=== PATIENT | male | born 1965 | race Two or more races ===

== ENCOUNTER 2024-05-17 17:11 | Emergency (ER) | payer MEDICAID, SELFPAY ==
[2024-05-17 17:12] VITALS: BMI 30.4
[2024-05-17 17:18] VITALS: BP 181/102; BP 182/97; PULSE 68; RESP 18; TEMP 36.7; O2SAT 96
--- NOTE | 2024-05-17 18:10 | PC.NURSE ---
pt walked out of RME Rm 1. Not wanting to be seen by a provider anymore. nurse notified
== END 2024-05-17 18:01 | disposition left against medical advice (07) ==
LOC: SERX 18:30
PROVIDERS: Emergency Provider Emergency Medicine
DX: Z53.21 Procedure and treatment not carried out due to patient leaving prior to being seen by health care provider (principal)
CPT/HCPCS: 99281

== ENCOUNTER 2024-05-23 01:23 | Inpatient (IN) | payer MEDICAID, SELFPAY ==
[2024-05-23] VITALS (10 sets, daily range): BP systolic 139–179; BP diastolic 77–112; PULSE 60–87; RESP 12–98; TEMP 36.2–37.4; O2SAT 96–100; BMI 29.5
--- NOTE | 2024-05-23 01:26 | EKG_ITS ---
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
[2024-05-23] MEDS: DIAZEPAM 5 MG TABLET 10 MG PO (02:25)
[2024-05-23 02:31] LABS: Basophils % (Auto) 0 % (0-2.5); Eosinophils # (Auto) 0.3 Thou/mm3 (0.0-0.5); Eosinophils % (Auto) 4 % (0-10); Hematocrit 33.2 % (41.0-53.0); Hemoglobin 11.9 g/dL (13.5-16.0); Immature Granulocytes % (Auto) 0 % (0-0); Immature Granulocytes Auto 0.02 Thou/mm3 (0.00-0.00); Lymphocytes # (Auto) 1.9 Thou/mm3 (1.0-4.8); Lymphocytes % (Auto) 27 % (10-50); Mean Corpuscular HGB Conc 35.8 g/dl (31.0-37.0); Mean Corpuscular Hemoglobin 27.7 pg (25.0-35.0); Mean Corpuscular Volume 77 fL (80-100); Monocytes # (Auto) 0.5 Thou/mm3 (0.0-0.8); Monocytes % (Auto) 7 % (0-12); Neutrophils # (Auto) 4.2 Thou/mm3 (1.8-7.7); Neutrophils % (Auto) 61 % (37-80); Nucleated Red Blood Cell % 0 /100 WBC (0); Platelet Count 166 Thou/mm3 (140-440); RDW Standard Deviation 32.8 fL (35.1-43.9); White Blood Count 6.9 Thou/mm3 (3.8-10.6)
[2024-05-23 03:08] LABS: Troponin I < 0.020 ng/mL (0.0-0.045)
[2024-05-23 03:17] LABS: Albumin, Serum 4.4 gm/dL (3.4-4.8); Albumin/Globulin Ratio 1.5 (1.2-2.2); Alkaline Phosphatase 173 U/L (46-116); Anion Gap 8 (7-16); BUN/Creatinine Ratio 18 Ratio (12-20); Bilirubin,Total 0.9 mg/dL (0.3-1.2); Blood Urea Nitrogen 18 mg/dL (9-23); Calcium 8.4 mg/dL (8.3-10.6); Calcium (Corrected) 8.4 mg/dL (8.5-10.1); Carbon Dioxide 24.6 mMol/L (20.0-31.0); Chloride 93 mMol/L (98-107); Globulin 2.9 gm/dL (2.3-3.5); Glucose 122 mg/dL (74-106); Osmolality,Calculated 256 (275-295); Potassium 3.8 mMol/L (3.4-5.1); Sodium 126 mMol/L (136-145); Total Protein 7.3 gm/dL (5.7-8.2); eGFR > 60 See Note
[2024-05-23 03:24] LABS: Alanine Aminotransferase 1707 U/L (10-49)
[2024-05-23 04:05] LABS: Collection Type, Urine Clean Catch
--- NOTE | 2024-05-23 04:07 | XR_ITS ---
Examination: Abdomen sonogram, Limited Date and time of exam: May 23, 2024 0426 hrs. Indications: Excessive alcohol drinking beginning May 15, 2024 with elevated liver function tests on laboratory examination Technique: Real-time go scale transabdominal sonographic images of the upper abdomen obtained. Findings: Normal gallbladder Common bile duct 0.4 cm no stones Pancreas obscured by bowel gas Liver 17.4 cm lobular contour fatty infiltration no solid liver lesions Normal hepatopedal portal venous flow Patent IVC Impression: Normal gallbladder Primary hepatocellular disease versus cirrhosis
[2024-05-23 04:20] LABS: Bacteria,Urine Rare; Bilirubin,Urine Negative (Negative); Blood,Urine Negative (Negative); Clarity,Urine Clear (Clear/Hazy); Color,Urine Lt-Yellow (Lt Yel-Yel); Glucose, Urine Negative (Negative); Ketones,Urine Negative (Negative); Leukocyte Esterase,Urine Negative (Negative); Nitrite,Urine Negative (Negative); Protein,Urine Negative (Neg - Trace); RBC,Urine 1 /hpf (0-3); Specific Gravity,Urine 1.008 (1.001-1.035); Squamous Epithelial Cell,Urine < 1 /hpf (0-5); Urobilinogen,Urine Negative mg/dL (0.0-1.0); WBC,Urine 1 /hpf (0-5)
[2024-05-23 04:25] LABS: Amphetamine/Methamp Scrn,U Negative (Negative); Barbiturate Screen,Urine Negative (Negative); Benzodiazepines Screen,Urine Negative (Negative); Benzoylecgonine Screen, Ur Negative (Negative); Fentanyl Screen,Urine Negative (Negative); Opiate Screen,Urine Negative (Negative); THC Screen,Urine Negative (Negative)
--- NOTE | 2024-05-23 05:18 | PD.EDRME ---
Rapid Medical Screening Exam RME Arrival date/time: 05/23/24 01:23 59M with history of HTN and alcohol use presents to ED with CP and anxiety. Patient has been drinking non-stop for 2 weeks and stopped drinking several hours ago. Patient denies SI/HI. Chief Complaint: Chest Pain Time Seen by Provider: 05/23/24 02:01 Vital signs: Vital Signs Temperature 98.4 F 05/23/24 01:48 Pulse Rate 74 05/23/24 01:48 Respiratory Rate 18 05/23/24 01:48 Blood Pressure 164/105 H 05/23/24 01:48 Pulse Oximetry (%) 100 05/23/24 01:48 Oxygen Delivery Method Room Air 05/23/24 01:48
[2024-05-23 05:31] LABS: Hepatitis A Antibody IgM Non Reactive (Non React); Hepatitis B Core Antibody IgM Non Reactive (Non React); Hepatitis B Surface Antigen Non Reactive (Non React); Hepatitis C Antibody Non Reactive (Non React)
--- NOTE | 2024-05-23 05:39 | PRELIM_ITS ---
Ultrasound liver. May 23, 2024 at 0426 hours Clinical history: Elevated LFTS.Comparison: No prior study is available for comparison. Findings:The liver measures 17.2 cm and demonstrates increased ec hotexture and lobular contour. No gallbladder calculus ,wall thickening or pericholecystic fluid. Com mon bile duct is average caliber measuring 0.4 cm. There is no intrahepatic biliary ductal dilatation . The main portal vein demonstrates hepatopetal flow. The visualized hepatic veins appear patent. The common hepatic duct is normal in caliber. Impression:1. Fatty liver with lobular contour. Recommend clinical and laboratory correlation. 2. No sonographic evidence of cholelithiasis, acute cholecystiti s or biliary obstruction. Report Electronically Signed By: Oliverio Kauffman 05/23/2024 5:38:48 AM [EST]
[2024-05-23 06:30] LABS: Ammonia 10 uMol/L (11-32)
[2024-05-23 07:02] LABS: INR 1.1 (0.9-1.3); Partial Thromboplastin Time 23.8 Seconds (22.0-36.0); Prothrombin Time 11.6 Seconds (9.0-12.2)
[2024-05-23 08:30] LABS: Lipase 64 U/L (12-53)
[2024-05-23 08:31] LABS: Acetaminophen < 2.0 mcg/mL (10.0-20.0)
[2024-05-23 11:47] LABS: HIV (1&2) Antibody Rapid Non-Reactive
[2024-05-23 12:10] LABS: Aspartate Amino Transferase 973 U/L (0-34)
[2024-05-23] MEDS: LORazepam 2 MG/ML VIAL IVP (13:44)
--- NOTE | 2024-05-23 14:49 | ESHP_ITS ---
<Statement entered by Cassidy Patel MD - 05/28/24 14:16> I reviewed above note and agree with findings and plans. I have also personally examined the patient with medicine team and went over assessment and plan with medical team including web design intern and resident physician. Documentation for date of: 05/23/24 HPI History of Present Illness Chief complaint: Alcohol withdrawal, anxiety History of present illness: Mr. Reagan is a 59-year-old male with past medical history of hypertension who presented to [facility] with a chief complaint of anxiety, shakiness and chest pain. Patient that his symptoms started about 8 days ago, he started feeling more anxious, reports drinking 12 pack beer on a daily basis for the last 8 days. Reports last drink was yesterday at 11 PM, he started feeling anxious tremulous, symptoms were relieved with alcohol. Patient reports drinking on and off for the last many years, complains of nausea with vomiting, does report multiple episodes before presenting to the hospital and chest pain, substernal, on and off, nonradiating. Patient denies any blood in vomit, mild tremors noted, complains of anxiety has no other complaints. In the ED patient's alcohol level was found to be 184, denies any other drug use otherwise. Denies any shortness of breath and headache. Patient did report that he had been drinking nonstop for the last 8 days to the ED physician. ED Course: ED Vitals: On presentation's BP 164/105, P74, RR 18, temp 98.4, O2 sat 100 on room air ED Labs: ED labs significant for RBC 4.3, hemoglobin 11.9, hematocrit 33.2, MCV 77, sodium 126, corrected sodium 127, glucose 122, chloride 93, osmolality 256, corrected calcium 8.4, AST 973, ALT 1707, alk phos 173, ammonia 10, lipase 64 UA does show rare bacteria, tox screen shows blood alcohol level 184, hepatitis panel nonreactive ED Imaging:Liver ultrasound shows patent IVC, Normal gallbladder and Primary hepatocellular disease versus cirrhosis ED Treatment:Patient was given diazepam 10 mg x 1 in ED She will be admitted for alcohol withdrawal and transaminitis. Review of Systems Review of Systems Narrative Review of Systems: ROS: -CONSTITUTIONAL: Denies weight loss, fever and chills. -HEENT: Denies changes in vision and hearing. -RESPIRATORY: Denies SOB and cough. -CV: Denies palpitations and Positive for Chest Pain. -GI: Denies abdominal pain,constipation and diarrhea, positive for nausea, vomiting -: Denies dysuria and urinary frequency. -MSK: Denies myalgia and joint pain. -SKIN: Denies rash and pruritus. -NEUROLOGICAL: Denies headache and syncope. -PSYCHIATRIC: Denies recent changes in mood. Positive for anxiety. 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 Obese, conversational and non-toxic appearing. Reports anxiety. HEENT: Normocephalic, atraumatic, mucous membranes moist. Heart: Regular rate and rhythm, no murmurs. Lungs: Clear to auscultation with no wheezing or crackles. Abdomen: Soft, nondistended, nontender, positive bowel sounds. ?No guarding or rebound tenderness. Neurologic: Alert and oriented x3, no gross neurological deficit, and patient able to move all 4 extremities. Mild tremors noted. Extremities: No edema. Skin: No rash or ecchymoses. Results: Labs 05/23/24 02:21 05/23/24 02:21 Labs: Short CBC 05/23/24 Range/Units 02:21 WBC 6.9 (3.8-10.6) Thou/mm3 Hgb 11.9 L (13.5-16.0) g/dL Hct 33.2 L (41.0-53.0) % Plt Count 166 (140-440) Thou/mm3 BMP 05/23/24 02:21 Sodium 126 L Potassium 3.8 Chloride 93 L Carbon Dioxide 24.6 BUN 18 Creatinine 1.0 Glucose 122 H Calcium 8.4 Cardiac Enzymes 05/23/24 Range/Units 02:21 Troponin I < 0.020 (0.0-0.045) ng/mL Liver Function 05/23/24 Range/Units 02:21 Total Bilirubin 0.9 (0.3-1.2) mg/dL AST 973 H* (0-34) U/L ALT 1707 H* (10-49) U/L Alkaline Phosphatase 173 H (46-116) U/L Albumin 4.4 (3.4-4.8) gm/dL Urine 05/23/24 Range/Units 03:56 Urine Color Lt-Yellow (Lt Yel-Yel) Urine Clarity Clear (Clear/Hazy) Urine pH 6.0 (5.0-7.0) Ur Specific [place] 1.008 (1.001-1.035) Urine Protein Negative (Neg - Trace) Urine Glucose (UA) Negative (Negative) Quality Measures Quality Measures VTE prophylaxis Medications Home Medications and Allergies Home Medications ?Medication ?Instructions ?Recorded ?Confirmed ?Type losartan 100 1 tab PO QDAY 04/08/24 04/08/24 History mg-hydrochlorothiazide 25 mg tablet Allergies Allergy/AdvReac Type Severity Reaction Status Date / Time No Known Allergies Allergy Verified 05/17/24 17:14 Visit Medications Amlodipine Besylate (Amlodipine Besylate 5 Mg Tablet) 5 mg PO QDAY [facility] Stop: 06/22/24 14:59 Chlordiazepoxide HCl (Chlordiazepoxide Hcl 25 Mg Capsule) 25 mg PO TID [facility] Stop: 05/24/24 14:44 Folic Acid (Folic Acid 1 Mg Tablet) 1 mg PO BID [facility] Stop: 05/28/24 14:44 Heparin Sodium (Porcine) (Heparin Sod Inj 5000 Unit/Ml Vial) 5,000 unit SC Q12H [facility] Stop: 06/06/24 14:44 Lorazepam (Lorazepam 0.5 Mg Tablet) 0.5 mg PO Q4HR PRN PRN Reason: CIWA Score 2-6 Stop: 05/28/24 14:39 Lorazepam (Lorazepam 0.5 Mg Tablet) 1 mg PO Q4HR PRN PRN Reason: CIWA SCORE 7-11 Stop: 05/28/24 14:39 Lorazepam (Lorazepam 0.5 Mg Tablet) 2 mg PO Q4HR PRN PRN Reason: CIWA SCORE 12-15 Stop: 05/28/24 14:39 Lorazepam (Lorazepam 2 Mg/Ml Vial) 1 mg IV X1 PRN PRN Reason: Breakthrough Agitation Ondansetron HCl (Ondansetron Inj 2 Mg/Ml Inj 2 Ml) 4 mg IV Q6H PRN; Protocol PRN Reason: NAUSEA OR VOMITING Stop: 06/22/24 14:30 Pantoprazole Sodium (Pantoprazole Inj 40 Mg Vial) 40 mg IVP QDAY [facility] Stop: 06/22/24 14:44 Sennosides (Senna Tablet) 1 tab PO QDAY PRN; Protocol PRN Reason: constipation Stop: 06/22/24 14:30 Thiamine HCl (Thiamine 100 Mg Tablet) 100 mg PO BID [facility] Stop: 05/28/24 14:44 Discontinued Medications Diazepam (Diazepam 5 Mg Tablet) 10 mg PO X1 ONE Stop: 05/23/24 02:02 Last Admin: 05/23/24 02:25 Dose: 10 mg Folic Acid (Folic Acid 1 Mg Tablet) 1 mg PO BID [facility] Stop: 05/28/24 14:44 Sodium Chloride (Ns) 1,000 mls @ 999 mls/hr IV .Q1H1M ONE Stop: 05/23/24 14:44 Lorazepam (Lorazepam 2 Mg/Ml Vial) 2 mg IVP X1 ONE Stop: 05/23/24 13:45 Assessment & Plan Plan Summary:Mr. Reagan is a 59-year-old male with past medical history of hypertension who presented to [facility] with a chief complaint of anxiety and chest pain. Patient did report drinking nonstop for the last 8 days, stop drinking last night, last drink last night 11 PM. Patient admitted to the hospital for management of alcohol withdrawal. # Alcohol dependence with withdrawal Patient reports drinking on and off for the last many years, drinking nonstop for the last 8 days, reports drinking 12 pack beer. Last drink 11 PM yesterday. Does complain of anxiety, chest pain, tremors. Blood alcohol level 184 in ED. did have symptoms of alcohol withdrawal in ED, was given diazepam x 1. 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 Hepatitis panel negative in ED, IVC patent noted on liver ultrasound Plan: -Monitor CMP in a.m. -Ordered ferritin level, WALTER antibodies -Consider further workup, underlying suspicion of alcoholic liver disease -Monitor for hypotension -Monitor coagulation panel daily # Microcytic anemia Hemoglobin 11.9, MCV 77, suspicion of iron deficiency anemia Denies any blood in vomit/stools Plan: -Will discharge on oral iron tablets -Monitor CBC in a.m. # Chest pain Complains of on and off retrosternal pain nonradiating for the last 8 days Does report nausea and vomiting on and off for the last 8 days Troponins negative, EKG unremarkable, suspicion of GERD Plan: -IV Protonix 40 mg today DVT prophylaxis: Subcutaneous heparin every 12 hours GI prophylaxis: Protonix Diet: Cardiac Lines: Peripheral IV Code status: Full code Case discussed with Attending Dr. Obad. Siria Squires PGY1
--- NOTE | 2024-05-23 14:49 | EDNOTE_ITS ---
ED Anxiety RME/HPI General Chief Complaint: Chest Pain Stated Complaint: CHEST PAIN X 30MINS Time Seen by Provider: 05/23/24 02:01 Arrival date/time: 05/23/24 01:23 RME / HPI RME / HPI narrative: 05/23/24 01:23 59M with history of HTN and alcohol use presents to ED with CP and anxiety. Patient has been drinking non-stop for 2 weeks and stopped drinking several hours ago. Patient denies SI/HI. DR. PEREZ MAIN ED EVALUATION 59 year old male with history of hypertension and alcohol abuse presents to the ED for complaint of feeling anxious and shaky for 3 days. Additionally reports decreased appetite for 8 days. Per son, patient had a 2 week allison and stopped drinking last night. Denies fever, chills, sweating. Denies chest pain, cough, shortness of breath. Denies nausea, vomiting, diarrhea, constipation. Denies dysuria, urinary frequency and urgency. Related Data Home Medications ?Medication ?Instructions ?Recorded ?Confirmed losartan 100 1 tab PO QDAY 04/08/24 05/23/24 mg-hydrochlorothiazide 25 mg tablet Allergies Allergy/AdvReac Type Severity Reaction Status Date / Time No Known Allergies Allergy Verified 05/17/24 17:14 Review of Systems Review of Systems Narrative Review of Systems: GEN: No fever, no chills, no weight loss, +feeling shaky and anxious EYES: No discharge, no visual changes, no pain HEENT: No ear pain, no congestion, no sore throat PULM: No shortness of breath, no cough, no congestion CV: No chest pain, no dyspnea on exertion, no palpitations GI: No nausea, no vomiting, no diarrhea, no pain, no constipation : No frequency, no urgency, no dysuria MUSC/SKEL: No joint pain, no back pain SKIN: No rash PSYCH: +alcohol binge drinking, +anxious NEURO: No weakness, no headache Past Medical History Past Medical History NEUROLOGIC: Negative Neurological Disorders CARDIAC: Positive Cardiac Disorders and Hypertension (has not taken meds in 3 months) GASTROINTESTINAL: Negative Gastrointestinal Disorders GENITOURINARY: Negative Genitourinary Disorders or Renal Disease MUSCULOSKELETAL: Negative Musculoskeletal Disorders ENT: Positive Cataracts (left eye cataract) ENDOCRINE: Negative Endocrine Disorders OTHER HISTORY: Positive Chicken Pox Social History SMOKING STATUS: Never smoker ED Exam Narrative Physical exam: GENERAL APPEARANCE: alert and oriented x 4, well-developed, well-nourished, tremulous, mildly diaphoretic, appears intoxicated HEENT: Normocephalic, atraumatic; pupils equal, round, reactive to light; EOMI; mucous membranes pink, moist; oropharynx clear, telangiectasia on nose NECK: Supple LUNGS: CTABL; no wheezes, no rales, no rhonchi HEART: Regular rate, regular rhythm; normal S1, S2; no murmurs ABDOMEN: non distended; normal BS; soft, no tenderness, no guarding, no rebound; no masses, no organomegaly, no hernia BACK: no CVA tenderness EXTREMITIES: atraumatic; no edema NEUROLOGIC: awake; alert and oriented x4; cranial nerves II-XII grossly intact; no focal sensory or motor deficits PSYCHIATRIC: appropriate mood and affect SKIN: warm, mildly diaphoretic, normal color; no rashes Course Quality Measures none Orders Category Date Time Status EKG (ED ONLY) *Do not use* NOW Care 05/23/24 01:26 Completed EKG (ED Only) Stat Exams 05/23/24 01:26 Draft US liver Stat Exams 05/23/24 04:07 Completed Acetaminophen Stat Lab 05/23/24 02:21 Completed Alcohol, Blood Medical Stat Lab 05/23/24 02:21 Completed Ammonia Stat Lab 05/23/24 06:00 Completed CBC Stat Lab 05/23/24 02:21 Completed CMP [Comprehensive Metabolic Panel] Stat Lab 05/23/24 02:21 Completed Drug Screen,Urine Stat Lab 05/23/24 03:56 Completed Hepatitis Acute Panel Stat Lab 05/23/24 02:21 Completed INR [Prothrombin Time with INR] Stat Lab 05/23/24 02:21 Completed Lipase Stat Lab 05/23/24 02:21 Completed PTT [Partial Thromboplastin Time] Stat Lab 05/23/24 02:21 Completed Troponin I Stat Lab 05/23/24 02:21 Completed Urinalysis Stat Lab 05/23/24 03:56 Completed Diazepam [Valium] Med 05/23/24 02:01 Discontinued 10 mg PO X1 ONE LORazepam [Ativan Inj] Med 05/23/24 13:44 Discontinued 2 mg IVP X1 ONE Sodium Chloride 0.9% 1000 ml [Ns] 1,000 ml Med 05/23/24 13:44 Discontinued IV 999 mls/hr Vital Signs Vital signs: Vital Signs Temperature 98.4 F 05/23/24 01:48 Pulse Rate 74 05/23/24 01:48 Respiratory Rate 18 05/23/24 01:48 Blood Pressure 164/105 H 05/23/24 01:48 Pulse Oximetry (%) 100 05/23/24 01:48 Oxygen Delivery Method Room Air 05/23/24 01:48 Anxiety Patient data External records reviewed:: [facility] previous records (I reviewed ED visit on 11/03/2021 ) Clinical information provided by:: patient and family (son adds to hpi) Social determinants that could affect healthcare access:: alcohol use Patient has the following chronic illnesses:: HTN, alcohol abuse How is presenting disease/condition affected by chronic disease/condition?: exacerbated by Evaluation data The following diagnostics were reviewed and interpreted by me:: lab results, radiology exam(s) and EKG tracing(s) (NSR, rate 73, no acute ischemic changes, no STEMI ) Lab and/or radiology exams considered but not ordered:: none Interpretation Summary: Ordering Physician: Sai Teixeira PA-C Date of Service: 05/23/24 Procedure(s): US liver Accession Number(s): [id number] cc: Uriah Silverman MD; Sai Teixeira PA-C; Temporary Provider,ED ~ Examination: Abdomen sonogram, Limited Date and time of exam: May 23, 2024 0426 hrs. Indications: Excessive alcohol drinking beginning May 15, 2024 with elevated liver function tests on laboratory examination Technique: Real-time go scale transabdominal sonographic images of the upper abdomen obtained. Findings: Normal gallbladder Common bile duct 0.4 cm no stones Pancreas obscured by bowel gas Liver 17.4 cm lobular contour fatty infiltration no solid liver lesions Normal hepatopedal portal venous flow Patent IVC Impression: Normal gallbladder Primary hepatocellular disease versus cirrhosis Dictated By: Uriah Silverman MD Signed By: <Electronically signed by Uriah Silverman MD in OV> 05/23/24 0750 DD/ 0749 TD/TT: 05/23/24 0749 Senior Marketing Coordinator: SANJAY Medications / Prescriptions Medications or Prescriptions considered but not ordered:: none Medication administrations:: Medication Administration History Amlodipine Besylate (Amlodipine Besylate 5 Mg Tablet) 5 mg PO QDAY [facility] Stop: 06/22/24 14:59 Chlordiazepoxide HCl (Chlordiazepoxide Hcl 25 Mg Capsule) 25 mg PO TID [facility]CLUD[facility] Stop: 05/24/24 14:44 Folic Acid (Folic Acid 1 Mg Tablet) 1 mg PO BID COUNT [facility]CLUDES [facility] Stop: 05/28/24 14:44 Heparin Sodium (Porcine) (Heparin Sod Inj 5000 Unit/Ml Vial) 5,000 unit SC Q12H COUNT INCLUDES [facility] Stop: 06/06/24 14:44 Lorazepam (Lorazepam 0.5 Mg Tablet) 0.5 mg PO Q4HR PRN PRN Reason: CIWA Score 2-6 Stop: 05/28/24 14:39 Lorazepam (Lorazepam 0.5 Mg Tablet) 1 mg PO Q4HR PRN PRN Reason: CIWA SCORE 7-11 Stop: 05/28/24 14:39 Lorazepam (Lorazepam 0.5 Mg Tablet) 2 mg PO Q4HR PRN PRN Reason: CIWA SCORE 12-15 Stop: 05/28/24 14:39 Lorazepam (Lorazepam 2 Mg/Ml Vial) 1 mg IV X1 PRN PRN Reason: Breakthrough Agitation Ondansetron HCl (Ondansetron Inj 2 Mg/Ml Inj 2 Ml) 4 mg IV Q6H PRN; Protocol PRN Reason: NAUSEA OR VOMITING Stop: 06/22/24 14:30 Pantoprazole Sodium (Pantoprazole Inj 40 Mg Vial) 40 mg IVP QDAY COUNT INCLUDES [facility] Stop: 06/22/24 14:44 Sennosides (Senna Tablet) 1 tab PO QDAY PRN; Protocol PRN Reason: constipation Stop: 06/22/24 14:30 Thiamine HCl (Thiamine 100 Mg Tablet) 100 mg PO BID COUNT INCLUDES [facility] Stop: 05/28/24 14:44 Discontinued Medications Diazepam (Diazepam 5 Mg Tablet) 10 mg PO X1 ONE Stop: 05/23/24 02:02 Last Admin: 05/23/24 02:25 Dose: 10 mg Documented By: CB Folic Acid (Folic Acid 1 Mg Tablet) 1 mg PO BID COUNT INCLUDES [facility] Stop: 05/28/24 14:44 Sodium Chloride (Ns) 1,000 mls @ 999 mls/hr IV .Q1H1M ONE Stop: 05/23/24 14:44 Lorazepam (Lorazepam 2 Mg/Ml Vial) 2 mg IVP X1 ONE Stop: 05/23/24 13:45 Consultations Consultation(s) initiated? (list below): Yes Consultation #1 (Physician, Specialty, Details): I spoke with resident Dr. Squires working with Dr. Patel. Discussed patients PMHx, HPI, ED course, exam findings, labs, and radiology results. The hospitalist agree to accept the patient for admission. Time: 14:30 Diagnosis Differential diagnosis anxiety: panic disorder, acute anxiety and other (alcohol withdrawals) Most likely diagnosis given after review of the tests above:: Alcohol withdrawal Transaminitis Admission Indicated Admission indicated?: indicated Admission Request Was there a request for admission?: Yes Admission Attestation Admission request attestation: Discussed case with [] from Hospitalist service regarding admission. Discussed patients ED course, exam findings, labs, and radiology results. The Hospitalist [agrees,declines] to accept the patient for admission. Disposition Plan Disposition Plan: Admit Discharge Plan Plan Patient Disposition: Admit Acute Care w/in Hospital Problem List Clinical Impression: Alcohol withdrawal, Transaminitis
[2024-05-23] MEDS: SODIUM CHLORIDE 0.9% 1000 ML 1,000 ML 999 ML IV (15:05)
[2024-05-23] MEDS: FOLIC ACID 1 MG TABLET PO (15:06)
[2024-05-23] MEDS: chlordiazePOXIDE HCl 25 MG CAPSULE PO ×2 (15:06→20:14)
[2024-05-23] MEDS: HEPARIN SOD INJ 5000 UNIT/ML VIAL SC (15:06)
[2024-05-23] MEDS: PANTOPRAZOLE INJ 40 MG VIAL IVP (15:06)
[2024-05-23] MEDS: THIAMINE 100 MG TABLET PO (15:07)
[2024-05-23] MEDS: amLODIPine BESYLATE 5 MG TABLET PO (15:07)
[2024-05-23] MEDS: amLODIPine BESYLATE 5 MG TABLET 2.5 MG PO (18:13)
--- NOTE | 2024-05-23 18:35 | PC.NURSE ---
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
[2024-05-24] VITALS (9 sets, daily range): BP systolic 133–168; BP diastolic 68–97; PULSE 56–86; RESP 14–98; TEMP 36.1–36.4; O2SAT 97–99; BMI 28.8
[2024-05-24] MEDS: LORazepam 0.5 MG TABLET 2 MG PO (04:37)
[2024-05-24] MEDS: chlordiazePOXIDE HCl 25 MG CAPSULE PO (05:17)
--- NOTE | 2024-05-24 05:21 | PC.NURSE ---
Patient refused lab draw
[2024-05-24] MEDS: amLODIPine BESYLATE 5 MG TABLET 2.5 MG PO (08:10)
[2024-05-24] MEDS: FOLIC ACID 1 MG TABLET PO ×2 (08:11→20:04)
[2024-05-24] MEDS: PANTOPRAZOLE INJ 40 MG VIAL IVP (08:11)
[2024-05-24] MEDS: THIAMINE 100 MG TABLET PO ×2 (08:11→20:04)
--- NOTE | 2024-05-24 10:00 | PC.SS ---
Follow up note: On CWAL Protocol. Pt will return home upon dc.
--- NOTE | 2024-05-24 11:26 | PC.SS ---
SS met with patient regarding his d/c plan. Pt is alert/oriented. Pt was admitted for Alcohol Withdrawal. Pt confirmed demographic and contact information is correct on facesheet. Pt resides with and kids. 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 Pt ambulates independently without assistance or DME. Pt is ok with all ADLs. Patient?s pharmacy of choice is [facility] [address]. Pt named his dtr, Randolph Tobar, phone# [phone] medical decision maker if he is unable. Patient?s choice is to return home upon d/c. Pt does not have an advance directive, SS offered, and pt declined. Pt states not diabetic and is not on dialysis. Pt is on [place] Protocol. SS offered pt community resources for AA meeting in [facility] [address] and pt refused. Pt states he was partying from May 14 through for the holidays. Pt states he is able to stop drinking on his own and refused community resources. Pt states has not consumed alcohol or beer for over year until this year. Pt states he followed up with PCP in April 2024. D/C plan: Return home Next of Kin: Randolph Tobar dtr, phone# [phone] PCP: Dr. Jigar Buenrostro from [facility] Address: Correct on facesheet
--- NOTE | 2024-05-24 13:42 | ESPR_ITS ---
<Statement entered by Cassidy Patel MD - 05/28/24 14:16> I reviewed above note and agree with findings and plans. I have also personally examined the patient with medicine team and went over assessment and plan with medical team including internal specialist and resident physician. Documentation for date of: 05/24/24 Subjective Subjective Interval history: Patient seen today at bedside fine awake, alert, oriented x 3. No overnight events reported. Vital signs stable at this time. Labs unremarkable. Currently with Librium 25 mg daily, on CIWA protocol which will be discontinued. Continue with CIWA protocol. Patient stated that he would like to go home but we will keep him hospitalized for 1 more day due to the fact that he is still a risk for alcohol withdrawal seizures. Patient was refusing lab draws this morning and was motivated to continue with lab draw so we can assess his metabolic function. Exam Vital Signs Temp Pulse Resp BP Pulse Ox O2 Del Method 97.0 F 74 16 140/88 H 99 Room Air 05/24/24 12:00 05/24/24 12:00 05/24/24 12:00 05/24/24 12:00 05/24/24 12:05/24/24 12:00 Narrative Exam Physical Exam General: Awake and in no acute distress. Obese, conversational and non-toxic appearing. Reports anxiety. HEENT: Normocephalic, atraumatic, mucous membranes moist. Heart: Regular rate and rhythm, no murmurs. Lungs: Clear to auscultation with no wheezing or crackles. Abdomen: Soft, nondistended, nontender, positive bowel sounds. ?No guarding or rebound tenderness. Neurologic: Alert and oriented x3, no gross neurological deficit, and patient able to move all 4 extremities. Mild tremors noted. Extremities: No edema. Skin: No rash or ecchymoses. Objective Labs 05/24/24 14:57 05/24/24 14:57 Quality Measures Quality Measures VTE prophylaxis Assessment & Plan Assessment Current Active Medications: Generic Name Dose Route Start Last Admin Trade Name Freq PRN Reason Stop Dose Admin Amlodipine Besylate 2.5 mg 05/23/24 15:15 05/24/24 08:10 Amlodipine Besylate 5 Mg Tablet PO 06/22/24 15:14 2.5 mg QDAY SHAY Administration Folic Acid 1 mg 05/23/24 14:45 05/24/24 08:11 Folic Acid 1 Mg Tablet PO 05/28/24 14:44 1 mg BID SHAY Administration Heparin Sodium (Porcine) 5,000 unit 05/23/24 14:45 05/24/24 04:56 Heparin Sod Inj 5000 Unit/Ml Vial SC 06/06/24 14:44 Not Given Q12H SHAY Lorazepam 0.5 mg 05/23/24 14:40 Lorazepam 0.5 Mg Tablet PO 05/28/24 14:39 Q4HR PRN CIWA Score 2-6 Lorazepam 1 mg 05/23/24 14:40 Lorazepam 0.5 Mg Tablet PO 05/28/24 14:39 Q4HR PRN CIWA SCORE 7-11 Lorazepam 2 mg 05/23/24 14:40 05/24/24 04:37 Lorazepam 0.5 Mg Tablet PO 05/28/24 14:39 2 mg Q4HR PRN Administration CIWA SCORE 12-15 Lorazepam 1 mg 05/23/24 14:40 Lorazepam 2 Mg/Ml Vial IV X1 PRN Breakthrough Agitation Ondansetron HCl 4 mg 05/23/24 14:31 Ondansetron Inj 2 Mg/Ml Inj 2 Ml IV 06/22/24 14:30 Q6H PRN NAUSEA OR VOMITING Protocol Pantoprazole Sodium 40 mg 05/23/24 14:45 05/24/24 08:11 Pantoprazole Inj 40 Mg Vial IVP 06/22/24 14:44 40 mg QDAY SHAY Administration Sennosides 1 tab 05/23/24 14:31 Senna Tablet PO 06/22/24 14:30 QDAY PRN constipation Protocol Thiamine HCl 100 mg 05/23/24 14:45 05/24/24 08:11 Thiamine 100 Mg Tablet PO 05/28/24 14:44 100 mg BID SHAY Administration Plan Summary:Mr. Reagan is a 59-year-old male with past medical history of hypertension who presented to [facility] with a chief complaint of anxiety and chest pain. Patient did report drinking nonstop for the last 8 days, stop drinking last night, last drink last night 11 PM. Patient admitted to the hospital for management of alcohol withdrawal. # Alcohol dependence with withdrawal Patient reports drinking on and off for the last many years, drinking nonstop for the last 8 days, reports drinking 12 pack beer. Last drink 11 PM yesterday. Does complain of anxiety, chest pain, tremors. Blood alcohol level 184 in ED. did have symptoms of alcohol withdrawal in ED, was given diazepam x 1. 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 Hepatitis panel negative in ED, IVC patent noted on liver ultrasound Plan: -Continue to monitor CMP -Ordered ferritin level, WALTER antibodies -Consider further workup, underlying suspicion of alcoholic liver disease -Monitor for hypotension -Monitor coagulation panel daily # Microcytic anemia Hemoglobin 11.9, MCV 77, suspicion of iron deficiency anemia Denies any blood in vomit/stools Plan: -Will discharge on oral iron tablets -Monitor CBC in a.m. # Chest pain Complains of on and off retrosternal pain nonradiating for the last 8 days Does report nausea and vomiting on and off for the last 8 days Troponins negative, EKG unremarkable, suspicion of GERD Plan: -IV Protonix 40 mg today Case discussed with my senior Dr. Oconnor and my attending Dr. Jorge Unger MD PGY-1 DVT prophylaxis: Subcutaneous heparin every 12 hours GI prophylaxis: Protonix Diet: Cardiac Lines: Peripheral IV Code status: Full code
--- NOTE | 2024-05-24 13:52 | PC.NURSE ---
Pt denies any withdrawal symptoms, but obliviously anxious. Pt stating he wants to leave and that he only has a hangover. With Jose ZAMBRANO interpreting, I explained that he needs to stay one more night so that we can check his iron levels tomorrow (per MDs notes). I also requested that he please call for assistance when he desires to get out of bed because i don't want him falling and having to stay longer due to getting hurt. This is after the pt had gotten up out of bed and went outside his room and to one of the widows by the waiting area (even with Telesitter speaking to him in Croatian and sounding the alarm). Pt complained to Jose and I that he believes we are giving him medication to make him relax and he is not happy about that. I explained that I myself have not given him any of that medication but he did receive some last night due to his withdrawal symptoms. Pt continues to claim that he is hungover and has been through this before and does not need to be here for these symptoms. Ultimately, pt seemed to understand/agree that he needs to stay one more night for the tests. Bed alarm set and telesitter still assigned
[2024-05-24 15:40] LABS: Basophils % (Auto) 1 % (0-2.5); Eosinophils # (Auto) 0.2 Thou/mm3 (0.0-0.5); Eosinophils % (Auto) 3 % (0-10); Hematocrit 31.7 % (41.0-53.0); Hemoglobin 10.7 g/dL (13.5-16.0); Immature Granulocytes % (Auto) 0 % (0-0); Immature Granulocytes Auto 0.02 Thou/mm3 (0.00-0.00); Lymphocytes # (Auto) 1.2 Thou/mm3 (1.0-4.8); Lymphocytes % (Auto) 21 % (10-50); Mean Corpuscular HGB Conc 33.8 g/dl (31.0-37.0); Mean Corpuscular Hemoglobin 27.5 pg (25.0-35.0); Mean Corpuscular Volume 82 fL (80-100); Monocytes # (Auto) 0.5 Thou/mm3 (0.0-0.8); Monocytes % (Auto) 8 % (0-12); Neutrophils % (Auto) 67 % (37-80); Nucleated Red Blood Cell % 0 /100 WBC (0); Platelet Count 148 Thou/mm3 (140-440); RDW Standard Deviation 35.4 fL (35.1-43.9); Red Blood Count 3.89 Miln/mm3 (4.50-5.90); White Blood Count 5.9 Thou/mm3 (3.8-10.6)
[2024-05-24 15:56] LABS: Partial Thromboplastin Time 25.1 Seconds (22.0-36.0); Prothrombin Time 10.6 Seconds (9.0-12.2)
[2024-05-24 16:21] LABS: Alanine Aminotransferase 878 U/L (10-49); Albumin, Serum 3.7 gm/dL (3.4-4.8); Albumin/Globulin Ratio 1.2 (1.2-2.2); Alkaline Phosphatase 183 U/L (46-116); Anion Gap 8 (7-16); Aspartate Amino Transferase 293 U/L (0-34); BUN/Creatinine Ratio 15 Ratio (12-20); Blood Urea Nitrogen 16 mg/dL (9-23); Calcium 8.6 mg/dL (8.3-10.6); Calcium (Corrected) 8.8 mg/dL (8.5-10.1); Carbon Dioxide 24.4 mMol/L (20.0-31.0); Cardiac Risk Estimate 3.2 RATIO (4.0-6.7); Chloride 103 mMol/L (98-107); Cholesterol 164 mg/dL (132-200); Creatinine (Component) 1.1 mg/dL (0.6-1.3); Estimated Creatinine Clearance 77.6 mL/min (>60); Globulin 3.1 gm/dL (2.3-3.5); Glucose 119 mg/dL (74-106); HDL Cholesterol 52 mg/dL (40-60); LDL Cholesterol,Calculated 79 mg/dL (0-130); Magnesium 1.6 mg/dL (1.6-2.6); Osmolality,Calculated 272 (275-295); Phosphorous 2.9 mg/dL (2.4-5.1); Potassium 4.2 mMol/L (3.4-5.1); Sodium 135 mMol/L (136-145); Thyroid Stimulating Hormone 1.47 uIU/mL (0.55-4.78); Total Protein 6.8 gm/dL (5.7-8.2); Triglycerides 167 mg/dL (30-150); eGFR > 60 See Note
[2024-05-24 16:39] LABS: Ferritin > 1650 ng/mL (10.5-307.3)
[2024-05-25] VITALS (7 sets, daily range): BP systolic 128–157; BP diastolic 71–94; PULSE 56–77; RESP 12–98; TEMP 36.2–36.7; O2SAT 96–100
--- NOTE | 2024-05-25 00:01 | PC.NURSE ---
Patient and family member at bedside is refusing bed alarm to be on. Patient and family member educated about fall precautions. Avasure is still in place.
[2024-05-25] MEDS: HEPARIN SOD INJ 5000 UNIT/ML VIAL SC (02:37)
--- NOTE | 2024-05-25 05:09 | PC.NURSE ---
Patient refused lab draw. Pt and daughter educated about the importance of lab draw but pt states he does not want any more blood draws
[2024-05-25] MEDS: THIAMINE 100 MG TABLET PO (08:10)
[2024-05-25] MEDS: amLODIPine BESYLATE 5 MG TABLET 2.5 MG PO (08:10)
[2024-05-25] MEDS: FOLIC ACID 1 MG TABLET PO (08:10)
[2024-05-25] MEDS: PANTOPRAZOLE INJ 40 MG VIAL IVP (08:11)
--- NOTE | 2024-05-25 11:59 | PC.NURSE ---
Lab called regarding patient refusing morning lab draw, Discharge orders in, Dr. Turner notified, ok to discharge without lab draws.
--- NOTE | 2024-05-25 13:10 | ESDS_ITS ---
Planned Discharge Date 05/25/24 DS: Providers Provider Date of admission: 05/23/24 14:31 Primary care physician: Physician No Primary/Family Admitting Provider: Cassidy Patel MD Attending Provider on Admission: Cassidy Patel MD Consults: 05/23/24 19:28 [facility] Referral - Knowledge Deficit Routine Comment: Positive screening for knowledge deficit needs. Attending Provider on DC: Cassidy Patel MD Discharging Provider: Ronaldo Unger MD Anticipated date of discharge: 05/25/24 DS: Diagnosis Problem List Completed Was Problem List Reviewed/Reconciled?: Yes Hospital Course Hospital Course Hospital course: 59-year-old male with past medical history of hypertension who presented to [facility] with a chief complaint of anxiety, shakiness and chest pain after a 8 day alcohol binge. Admitted for management of alochol withdrawal. During hospital stay patient was placced on CIWA protocol which includes ativan depending on severity of CIWA for management of symptoms. Patient was also started on Librium, thiamine, folate for the duration of the hospitalizations in order to minimize alcohol withdrawal related seizures. Patient was monitored daily to evaluate for any signs of withdrawal, was placed on seizure precautions. Patient is recommended to continue with folic acid and thiamine supplementation to protect from Warnicke's encephalopathy. Patient also had some microcytic anemia which was monitored and recommended to follow up with PCP. Patient was extensively counceled on the importance of alcohol cessation and the possible complications that can occur with continued alcohol use. Patient will continue with current blood pressure medications for management for hypertension. Patient at this time is medically stable for discharge. Patient is recommended follow-up with PCP within 1 week to discuss recent hospitalization. Patient is recommended to abstain from alcohol completely due to advanced liver disease progressing toward cirrhosis. Patient is recommended to follow-up with PCP for age-related cancer screening along with outpatient counseling services for alcohol cessation. Patient is recommended follow-up with PCP in regards to further workup for anemia. Patient is recommended follow-up with PCP for CMP in 2 weeks to assess for transaminitis. Patient to monitor blood pressure at home with a blood pressure log and follow-up with primary care physician for further management of hypertension. 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 Jorge Unger MD PGY-1 Status at Discharge Functional status at discharge: independent ambulation Overall status at discharge: patient is back to baseline Time Spent with Patient Time attestation: Total time spent providing and/or coordinating discharge services: Time spent: Greater than 30 minutes Exam Vital Signs Temp Pulse Resp BP Pulse Ox O2 Del Method 98.1 F 59 L 18 157/83 H 100 Room Air 05/25/24 12:00 05/25/24 12:00 05/25/24 12:05/25/24 12:05/25/24 12:05/25/24 12:00 Narrative Exam Physical Exam GENERAL: NAD, AAOx3 HEENT: Moist mucosa. Eyes open, symmetrical, & clear CARDIO: Heart RRR, no obvious murmurs PULM: No noted coughing/dyspnea CTA B/L, no R/W/R GI: Abdomen soft, nondistended, no pain on palpation. BSx4 SKIN/MSK/EXT: No wounds/rashes/edema/amputations, no pain on palpation. Pedal pulses present B/L NEURO: AAOx3, no focal neuro deficits, able to move all 4 extremities Discharge Plan Plan Patient Disposition: HOME (Self Care) Care Plan Goals: Patient is recommended follow-up with PCP within 1 week to discuss recent hospitalization Patient is recommended to abstain from alcohol completely due to advanced liver disease progressing toward cirrhosis Patient is recommended to follow-up with PCP for age-related cancer screening along with outpatient counseling services for alcohol cessation Patient is recommended follow-up with PCP in regards to further workup for anemia Patient is recommended follow-up with PCP for CMP in 2 weeks to assess for transaminitis Patient to monitor blood pressure at home with a blood pressure log and follow- up with primary care physician for further management of hypertension Patient is recommended to continue with folic acid and thiamine supplementation to protect from Warnicke's encephalopathy Prescriptions/Referrals Prescriptions/Med Rec: New folic acid 1 mg Tablet 1 mg PO BID 30 Days Qty: 60 2RF thiamine mononitrate (vit B1) 100 mg Tablet 100 mg PO BID 30 Days Qty: 60 2RF Continued losartan-hydrochlorothiazide 100-25 mg tablet 1 tab PO QDAY Patient Comments: TAKE 1 TABLET BY MOUTH EVERY DAY FOR 90 DAYS Referrals: No Primary/Family,Physician [Primary Care Provider] - Patient/Caregiver Discharge Instructions Education Materials: Checking Your Own Blood Pressure, Social Drinking vs Problem Drinking, The Impact of Alcoholism, Alcohol Withdrawal: What to Expect Print Language: Luxembourgish Stand Alone Forms: [employer] Award Info., Patient Portal Info Letter Discharge Order Discharge Orders: Discharge (Routine); Ordered 05/25/24 Ordered By: Emory Oconnor Quality Discharge Quality Measures VTE prophylaxis
--- NOTE | 2024-05-25 14:34 | PC.NURSE ---
Notified Dr. Turner of BP, 148/84 and retake 150/90, ok to still discharge.
--- NOTE | 2024-05-25 14:43 | PC.NURSE ---
Discharge instructions printed in algerian and extra copy given in swiss per daughters request.
--- NOTE | 2024-05-26 07:15 | PC.CC ---
Late Entry 05/25/24: Rounding note:Provide pt with AOD resources, D/c no further needs.
[2024-05-30 06:25] LABS: ANA Screen, IFA NEGATIVE (NEGATIVE)
== END 2024-05-25 14:24 | disposition home or self-care (01) | DRG 775 ==
LOC: SERX 10:39 → SERHOLD 14:37 → S2NX 18:31
PROVIDERS: Physician Assistant; Admitting Provider Internal Medicine; Emergency Provider Emergency Medicine; Visit Provider Internal Medicine
DX: F10.239 Alcohol dependence with withdrawal, unspecified (principal); K70.30 Alcoholic cirrhosis of liver without ascites; D50.9 Iron deficiency anemia, unspecified; I10 Essential (primary) hypertension; F41.9 Anxiety disorder, unspecified; Y90.6 Blood alcohol level of 120-199 mg/100 ml
CPT/HCPCS: 36415; 76705; 80053; 80061; 80074; 80307; 80320; 80329; 81001; 82140; 82728; 83690; 83735; 84100; 84443; 84484; 85025; 85610; 85730; 86038; 86703; 93005; 96361; 96372; 96374; 96375; 99285; J1643; J2060; J2470; J7030; A9270; G0480